=== PATIENT | female | born 1955 | race Caucasian/White ===

== ENCOUNTER → 2021-10-11 | Outpatient (CLI) | payer BC, OTHER ==
[2015-05-25 00:33] VITALS: BP 143/65
--- NOTE | 2021-10-11 16:41 | RAD ---
INDICATION : Routine Screening. COMPARISON: August 2015 TECHNIQUE: Standard mammogram screening views of the bilateral breasts were obtained with 3D tomosynt hesis. CAD was utilized. FINDINGS: The breasts are scattered density. No definite suspicious mass. Bilateral breast implants are seen. IMPRESSION: BI-RADS Category 2: Benign findings. Recommend repeat screening examination in one year. The patient was placed into the recall system with a suggested recall date for follow up imaging. Mammography is the most sensitive method for finding small breast cancers, but it does not detect the m all and is not a substitute for careful clinical examination. A negative mammogram does not negate a clinically suspicious finding and should not result in delay in biopsying a clinically suspicious abnormality. Electronically signed by: Scott Clemens MD (10/11/2021 4:39 PM) [id number]
== END ==
LOC: MAMMO 15:20
DX: Z12.31 Encounter for screening mammogram for malignant neoplasm of breast (principal)
CPT/HCPCS: 77063; 77067